=== PATIENT | male | born 1960 | race Caucasian/White ===

== ENCOUNTER 2016-12-04 13:12 | Emergency (ER) | payer MEDICARE ==
[2016-12-04 16:45] LABS: BASOPHIL 0.7 % (0-2); EOSINOPHIL 2.6 % (0-5); HCT 30.5 % (42.0-52.0); HGB 9.6 g/dl (13.2-18.0); MCH 28.3 pg (25.0-31.0); MCHC 31.5 g/dL (32.0-36.0); MONOCYTE 8.9 % (0-12); MPV 9.4 fL (6.0-9.5); NEUTROPHIL 70.8 % (41-80); PLT 317 K/uL (150-400); RBC 3.39 M/uL (4.70-6.00); RDW 16.9 % (11.5-14.0); WBC 7.6 K/uL (4.0-10.5)
[2016-12-04 16:56] LABS: BILIRUBIN NEGATIVE (NEGATIVE); BLOOD NEGATIVE Ery/uL (NEGATIVE); CLARITY CLEAR (CLEAR); COLOR YELLOW (YELLOW); GLUCOSE (U) TRACE mg/dL (NORMAL); KETONE (U) NEGATIVE (NEGATIVE); LEUKOCYTES NEGATIVE Leu/uL (NEGATIVE); NITRITE NEGATIVE (NEGATIVE); PROTEIN 2+ mg/dL (NEGATIVE); SPECIFIC GRAVITY 1.025 (1.001-1.030); UROBILINOGEN 0.2 mg/dL (0.2-1.0); pH 5.5 (5.0-9.0)
[2016-12-04 17:00] LABS: BACTERIA TRACE; MUCOUS TRACE; URINARY RBC RARE; URINARY WBC RARE
[2016-12-04 17:15] LABS: CREATININE 4.1 mg/dL (0.7-1.2); POTASSIUM 4.9 mmol/L (3.5-5.1)
== END 2016-12-04 19:19 | disposition home or self-care (01) ==
LOC: FER 13:12
PROVIDERS: Nurse Practitioner Family
DX: R06.02 Shortness of breath (principal); I13.0 Hypertensive heart and chronic kidney disease with heart failure and stage 1 through stage 4 chronic kidney disease, or unspecified chronic kidney disease; E11.22 Type 2 diabetes mellitus with diabetic chronic kidney disease; N18.4 Chronic kidney disease, stage 4 (severe); I50.9 Heart failure, unspecified; J44.9 Chronic obstructive pulmonary disease, unspecified; Z79.82 Long term (current) use of aspirin; Z79.899 Other long term (current) drug therapy; Z79.4 Long term (current) use of insulin; Z95.1 Presence of aortocoronary bypass graft
CPT/HCPCS: 36415; 71020; 80048; 81001; 85025; 87804; 87899; 94640